=== PATIENT | female | born 1940 | race Caucasian/White ===

== ENCOUNTER 2016-07-05 03:43 | Emergency (ER) | payer OTHER ==
[~2016-07-05] VITALS: Ht 167.6 cm; Wt 62.7 kg
[~2016-07-05 03:43] MED LIST: ASPIR-LOW81 MG PO; ASPIRIN EC325 MG PO; CARDIZEM CD120 MG PO; CIPRO250 MG PO; COZAAR50 MG PO; HYZAAR 50-121 TABLET PO; IRON325 M1 PO; LO-DOSE ASPIRIN81 M1 PO; MIRALAX255 GM PO; SYNTHROID150 MCG PO; TRAMADOL HCL50 MG PO; VITAMIN D2000 UNIT PO; XANAX0.25 MG PO
[2016-07-05 05:27] LABS: CHLORIDE 111 mEq/L (99-109); POTASSIUM 3.9 mEq/L (3.7-5.4); SODIUM 143 mEq/L (136-147)
[2016-07-05 05:28] LABS: HEMATOCRIT 35.9 % (36.0-46.0); MCH 32.2 PG (29.0-34.0); MCHC 34.5 G/DL (30.0-36.0); MCV 93.2 FL (83-99); MEAN PLAT.VOLUME 10.7 uM^3 (9.5-12.4); PLATELET COUNT 214 K/uL (156-360); RBC DIS.WIDTH-CV 16.1 % (11.8-14.6); RBC DIS.WIDTH-SD 51.3 % (39-53); RED BLOOD COUNT 3.85 M/uL (3.80-5.20); WHITE BLOOD COUNT 3.6 K/uL (4.1-10.2)
[2016-07-05 05:29] LABS: GLUCOSE 107 mg/dL (70-99)
[2016-07-05 05:30] LABS: ANION GAP 5 MEQ/L (2-14)
[2016-07-05 05:33] LABS: GFR ESTIMATE (CALCULATED) > 59 mL/min/
[2016-07-05 05:34] LABS: UREA NITROGEN (BUN) 14 mg/dL (9-23)
[2016-07-05 05:35] LABS: TROP-I INTERPRETATION NEGATIVE; TROPONIN-I < 0.01 ng/mL (0.0-0.30)
[2016-07-05 06:55] VITALS: BP 115/70
== END 2016-07-05 06:57 | disposition left against medical advice (07) ==
LOC: EME → EDBD 03:43 → EME 06:57
PROVIDERS: Emergency Medicine
DX: R07.89 Other chest pain (principal); I10 Essential (primary) hypertension; Z87.891 Personal history of nicotine dependence; Z85.41 Personal history of malignant neoplasm of cervix uteri; Z88.2 Allergy status to sulfonamides; Z79.82 Long term (current) use of aspirin; K21.9 Gastro-esophageal reflux disease without esophagitis
CPT/HCPCS: 71010; 80048; 81003; 84484; 85027; 99281; 99285

== ENCOUNTER 2017-01-18 21:13 | Emergency (ER) | payer OTHER ==
[~2017-01-18] VITALS: Ht 167.6 cm; Wt 64.7 kg
[2017-01-19 00:17] VITALS: BP 156/68
== END 2017-01-19 00:13 | disposition left against medical advice (07) ==
LOC: EME 21:13
PROC: 0HQ0XZZ Repair Scalp Skin, External Approach (ICD-10-PCS; principal; 2017-01-19)
DX: S01.01XA Laceration without foreign body of scalp, initial encounter (principal); W19.XXXA Unspecified fall, initial encounter; Y93.A9 Activity, other involving cardiorespiratory exercise; K21.9 Gastro-esophageal reflux disease without esophagitis; I10 Essential (primary) hypertension; Z87.891 Personal history of nicotine dependence
CPT/HCPCS: 99281; 99284

== ENCOUNTER 2017-08-09 12:12 | Day surgery (SDC) | payer OTHER ==
[~2017-08-09] VITALS: Ht 170.2 cm; Wt 62.0 kg
[~2017-08-09 12:12] MED LIST changes: +LAMOTRIGINE150 MG PO; +MIRALAX17 GM PO; -MIRALAX255 GM PO; +SYNTHROID125 MCG PO
== END 2017-08-09 14:55 | disposition home or self-care (01) ==
LOC: CATH 12:12
PROC: 0JH632Z Insertion of Monitoring Device into Chest Subcutaneous Tissue and Fascia, Percutaneous Approach (ICD-10-PCS; principal; 2017-08-09)
DX: R55 Syncope and collapse (principal); I48.91 Unspecified atrial fibrillation; I49.5 Sick sinus syndrome; I10 Essential (primary) hypertension; K21.9 Gastro-esophageal reflux disease without esophagitis; G47.30 Sleep apnea, unspecified; C18.9 Malignant neoplasm of colon, unspecified
CPT/HCPCS: C1764; J0690; J1200; J2250